=== PATIENT | male | born 1980 | race Caucasian/White ===

== ENCOUNTER 2017-10-17 05:35 | Emergency (ER) | payer SELFPAY ==
[2017-10-17] MEDS ORDERED: KETOROLAC 30 MG/ML INJ ONE (06:02)
[2017-10-17] MEDS ORDERED: NA CHLORIDE 0.9% 1,000 ML ONE ×2 (06:02→07:27)
[2017-10-17] MEDS ORDERED: MORPHINE 4 MG/ML SYR ONE (06:02)
[2017-10-17] MEDS ORDERED: ONDANSETRON 4 MG/2 ML VIAL ONE (06:02)
[2017-10-17 06:20] LABS: Absolute Lymphocytes (CBC) 1.4 K/uL (0.7-4.9); Absolute Monocytes 0.7 K/uL (0.1-1.3); Basophils % 0.4 % (0-1.3); Hematocrit 47.3 % (39.6-49.0); MCH 31.2 pg (27.0-35.0); MCV 90.2 fL (80-100); MPV 9.8 fL (7.6-11.3); Monocytes % 8.1 % (3.3-12.3); RBC Red Blood Cell Count 5.25 M/uL (4.33-5.43)
[2017-10-17 06:29] LABS: Potassium 3.7 mEq/L (3.6-5.0)
[2017-10-17 06:35] LABS: Albumin 4.7 g/dL (3.2-5.5); Bilirubin Direct 0.2 mg/dL (0-0.2); Bilirubin Total 0.7 mg/dL (0.3-1.2)
--- NOTE | 2017-10-17 07:44 | EDPHYS ---
Physician Documentation [facility] Name: Yecenia Escobar Jr Age: 36 yrs Sex: Male : 1980 Arrival Date: 10/17/2017 Time: 05:36 Bed 7 Private MD: ALE Physician Ramón Mohr HPI: 10/17 06:02 This 36 yrs old Male presents to ER via Ambulatory with complaints of Flank deb Burn, Flank Pain. 06:02 The patient has not experienced similar symptoms in the past. deb Historical: - Allergies: 06:01 No Known Allergies; tl2 - Home Meds: 06:01 None [Active]; tl2 - PMHx: 06:01 None; tl2 - PSHx: 06:01 None; tl2 - Immunization history:: Adult Immunizations up to date. - Social history:: Smoking status: Patient/guardian denies using tobacco. - Ebola Screening: : No symptoms or risks identified at this time. ROS: 06:02 Constitutional: Negative for fever, chills, and weight loss, Eyes: Negative for injury, deb pain, redness, and discharge, ENT: Negative for injury, pain, and discharge, Neck: Negative for injury, pain, and swelling, Cardiovascular: Negative for chest pain, palpitations, and edema, Respiratory: Negative for shortness of breath, cough, wheezing, and pleuritic chest pain, Abdomen/GI: Negative for abdominal pain, nausea, vomiting, diarrhea, and constipation, : Negative for injury, bleeding, discharge, and swelling, MS/Extremity: Negative for injury and deformity, Skin: Negative for injury, rash, and discoloration, Neuro: Negative for headache, weakness, numbness, tingling, and seizure, Psych: Negative for depression, anxiety, suicide ideation, homicidal ideation, and hallucinations, Allergy/Immunology: Negative for hives, rash, and allergies, Endocrine: Negative for neck swelling, polydipsia, polyuria, polyphagia, and marked weight changes, Hematologic/Lymphatic: Negative for swollen nodes, abnormal bleeding, and unusual bruising. 06:02 Back: Positive for decreased range of motion, flank pain, of the left low back and left mid back. Exam: 06:02 Constitutional: This is a well developed, well nourished patient who is awake, alert, deb and in no acute distress. Head/Face: Normocephalic, atraumatic. Eyes: Pupils equal round and reactive to light, extra-ocular motions intact. Lids and lashes normal. Conjunctiva and sclera are non-icteric and not injected. Cornea within normal limits. Periorbital areas with no swelling, redness, or edema. ENT: Nares patent. No nasal discharge, no septal abnormalities noted. Tympanic membranes are normal and external auditory canals are clear. Oropharynx with no redness, swelling, or masses, exudates, or evidence of obstruction, uvula midline. Mucous membranes moist. Neck: Trachea midline, no thyromegaly or masses palpated, and no cervical lymphadenopathy. Supple, full range of motion without nuchal rigidity, or vertebral point tenderness. No Meningismus. Chest/axilla: Normal chest wall appearance and motion. Nontender with no deformity. No lesions are appreciated. Cardiovascular: Regular rate and rhythm with a normal S1 and S2. No gallops, murmurs, or rubs. Normal PMI, no JVD. No pulse deficits. Respiratory: Lungs have equal breath sounds bilaterally, clear to auscultation and percussion. No rales, rhonchi or wheezes noted. No increased work of breathing, no retractions or nasal flaring. Abdomen/GI: Soft, non-tender, with normal bowel sounds. No distension or tympany. No guarding or rebound. No evidence of tenderness throughout. Male : Normal genitalia with no discharge or lesions. Skin: Warm, dry with normal turgor. Normal color with no rashes, no lesions, and no evidence of cellulitis. MS/ Extremity: Pulses equal, no cyanosis. Neurovascular intact. Full, normal range of motion. Neuro: Awake and alert, GCS 15, oriented to person, place, time, and situation. Cranial nerves II-XII grossly intact. Motor strength 5/5 in all extremities. Sensory grossly intact. Cerebellar exam normal. Normal gait. Psych: Awake, alert, with orientation to person, place and time. Behavior, mood, and affect are within normal limits. 06:02 Back: pain, that is moderate, ROM is normal, normal spinal alignment noted, CVA tenderness, that is moderate, is noted on the left. Vital Signs: 06:01 BP 132 / 95; Pulse 72; Resp 22 S; Temp 97(TE); Pulse Ox 100% on R/A; Weight 92.99 kg tl2 (R); Height 6 ft. 0 in. (182.88 cm) (R); Pain 10/10; 06:30 BP 128 / 88; Pulse 56; Resp 18; Pulse Ox 100% on R/A; tl2 08:15 BP 124 / 80; Pulse 60; Resp 17; Temp 97.0; Pulse Ox 99% on R/A; Pain 3/10; sg 06:01 Body Mass Index 27.80 (92.99 kg, 182.88 cm) tl2 MDM: 05:49 Patient medically screened. [facility] 06:04 Data reviewed: vital signs, nurses notes, lab test result(s), EKG, radiologic studies, [facility] CT scan, plain films. 10/17 06:02 Order name: Amylase, Serum [facility] 10/17 06:02 Order name: Basic Metabolic Panel [facility] 10/17 06:02 Order name: CBC with Diff; Complete Time: 07:10 [facility] 10/17 06:02 Order name: Creatinine for Radiology; Complete Time: 07:10 [facility] 10/17 06:02 Order name: Hepatic Function; Complete Time: 07:10 [facility] 10/17 06:02 Order name: Lipase; Complete Time: 07:10 [facility] 10/17 06:02 Order name: Urine Microscopic Only [facility] 10/17 06:02 Order name: CT Stone Protocol [facility] 10/17 06:02 Order name: Amylase Level; Complete Time: 07:10 EDMS 10/17 06:02 Order name: Basic Metabolic Panel; Complete Time: 07:10 [facility]MS 10/17 07:09 Order name: Urine Dipstick--Ancillary (enter results) 10/17 06:02 Order name: IV Saline Lock; Complete Time: 06:07 [facility] 10/17 06:02 Order name: Labs collected and sent; Complete Time: 06:07 [facility] 10/17 06:02 Order name: Urine Dipstick-Ancillary (obtain specimen); Complete Time: 07:07 [facility] 10/17 06:04 Order name: EKG; Complete Time: 06:05 [facility] 10/17 06:04 Order name: EKG - Nurse/Tech; Complete Time: 06:16 [facility] Administered Medications: 06:06 Drug: NS 0.9% 1000 ml Route: IV; Rate: 1 bolus; Site: right antecubital; tl2 07:06 Follow up: IV Status: Completed infusion; IV Intake: 1000ml tl2 06:06 Drug: TORadol 30 mg Route: IVP; Site: right antecubital; tl2 07:06 Follow up: Response: No adverse reaction; Pain is decreased tl2 06:07 Drug: morphine 4 mg Route: IVP; Site: right antecubital; tl2 07:06 Follow up: Response: No adverse reaction; Nausea is decreased tl2 07:06 Follow up: Response: No adverse reaction; Pain is decreased tl2 06:07 Drug: Zofran 4 mg Route: IVP; Site: right antecubital; tl2 07:06 Follow up: Response: No adverse reaction; Nausea is decreased tl2 07:28 Drug: NS 0.9% 1000 ml Route: IV; Rate: 1 bolus; Site: right antecubital; sg 07:46 CANCELLED (Duplicate Order): Rocephin - (cefTRIAXone) 1 grams IVPB once over 30 mins; ss (mix in 50 mL NS) 07:56 Drug: Flomax 0.4 mg Route: PO; ss 08:30 Follow up: Response: No adverse reaction sg 07:56 Drug: Rocephin 1 grams Route: IV; Rate: calculated rate; Site: right antecubital; ss 08:30 Follow up: Response: No adverse reaction; IV Status: Completed infusion; IV medication sg administered IVP as per pharmacy protocol Disposition: 10/17/17 07:43 Discharged to Home. Impression: Other acute pancreatitis - mild, Hydronephrosis with renal and ureteral calculous obstruction. - Condition is Stable. - Discharge Instructions: Abdominal Pain, Adult, Kidney Stones, Acute Pancreatitis, [id number], Kidney Stones, Awbo-hl-Kiqz, Abdominal Pain, Adult, Hkxq-od-Sbtl, Dietary Guidelines to Help Prevent Kidney Stones. - Prescriptions for Tylenol- Codeine #3 300-30 mg Oral Tablet - take 2 tablet by ORAL route every 6 hours As needed; 30 tablet. Zofran 4 mg Oral Tablet - take 1 tablet by ORAL route every 12 hours As needed; 20 tablet. Cipro 500 mg Oral Tablet - take 1 tablet by ORAL route every 12 hours for 7 days; 14 tablet. Flomax 0.4 mg Oral Capsule, Sust. Release 24 hr - take 1 capsule by ORAL route once daily 1/2 hour following the same meal each day; 30 capsule. - Medication Reconciliation Form, Thank You Letter, Antibiotic Education, Prescription Opioid Use form. - Follow up: Private Physician; When: 2 - 3 days; Reason: Recheck today's complaints, Continuance of care, Re-evaluation by your physician. Follow up: Jerilyn Cardozo; When: 2 - 3 days; Reason: Recheck today's complaints, Re-evaluation by your physician. Follow up: Adwoa Fuentes MD; When: 2 - 3 days; Reason: Recheck today's complaints, Continuance of care, Re-evaluation by your physician. - Problem is new. - Symptoms have improved. Signatures: Dispatcher [employer] EDMS Edwin Rowland RN RN Ramón Carranza MD MD cha Smirch, Shelby, RN RN Amanda Gonzalez RN RN tl2 Corrections: (The following items were deleted from the chart) 07:46 07:42 Rocephin - (cefTRIAXone) 1 grams IVPB once over 30 mins; (mix in 50 mL NS) ordered. [facility] 08:39 07:43 10/17/2017 07:43 Discharged to Home. Impression: Other acute pancreatitis - mild; sg Hydronephrosis with renal and ureteral calculous obstruction. Condition is Stable. Discharge Instructions: Abdominal Pain, Adult, Kidney Stones, Acute Pancreatitis, Acute Pancreatitis, Ddyh-bd-Edlm, Kidney Stones, Aqdd-yb-Oges, Abdominal Pain, Adult, Sixp-om-Owbh. Prescriptions for Pepcid 20 mg Oral Tablet - take 1 tablet by ORAL route every 12 hours for 10 days; 20 tablet, Tylenol-Codeine #3 300-30 mg Oral Tablet - take 2 tablet by ORAL route every 6 hours As needed; 30 tablet, Zofran 4 mg Oral Tablet - take 1 tablet by ORAL route every 12 hours As needed; 20 tablet. and Forms are Medication Reconciliation Form, Thank You Letter, Antibiotic Education, Prescription Opioid Use. Follow up: Private Physician; When: 2 - 3 days; Reason: Recheck today's complaints, Continuance of care, Re-evaluation by your physician. Follow up: Jerilyn Cardozo; When: 2 - 3 days; Reason: Recheck today's complaints, Re-evaluation by your physician. Follow up: Adwoa Fuentes; When: 2 - 3 days; Reason: Recheck today's complaints, Continuance of care, Re-evaluation by your physician. Problem is new. Symptoms have improved. deb
--- NOTE | 2017-10-17 07:44 | ER ---
Nurse's Notes [facility] Name: Yecenia Escobar Jr Age: 36 yrs Sex: Male : 1980 Arrival Date: 10/17/2017 Time: 05:36 Bed 7 Private MD: Diagnosis: Other acute pancreatitis-mild;Hydronephrosis with renal and ureteral calculous obstruction Presentation: 10/17 06:00 Presenting complaint: Patient states: he is having left flank pain since 0400 this tl2 morning. Transition of care: patient was not received from another setting of care. Onset of symptoms was October 17, 2017. Risk Assessment: Do you want to hurt yourself or someone else? Patient reports no desire to harm self or others. Initial Sepsis Screen: Does the patient meet any 2 criteria? No. Patient's initial sepsis screen is negative. Does the patient have a suspected source of infection? No. Patient's initial sepsis screen is negative. Care prior to arrival: None. 06:00 Method Of Arrival: Ambulatory tl2 06:00 Acuity: JOSE C 3 tl2 Historical: - Allergies: 06:01 No Known Allergies; tl2 - Home Meds: 06:01 None [Active]; tl2 - PMHx: 06:01 None; tl2 - PSHx: 06:01 None; tl2 - Immunization history:: Adult Immunizations up to date. - Social history:: Smoking status: Patient/guardian denies using tobacco. - Ebola Screening: : No symptoms or risks identified at this time. Screenin:04 Abuse screen: Denies threats or abuse. Nutritional screening: No deficits noted. tl2 Tuberculosis screening: No symptoms or risk factors identified. Fall Risk None identified. Assessment: 05:55 General: Appears in no apparent distress. uncomfortable, Behavior is cooperative, tl2 appropriate for age, anxious. Pain: Complains of pain in left flank Pain radiates to left lower quadrant. Neuro: Level of Consciousness is awake, alert, obeys commands, Oriented to person, place, time, situation. Cardiovascular: Denies chest pain. Respiratory: Airway is patent Respiratory effort is even, unlabored, Respiratory pattern is regular, symmetrical. GI: Reports nausea, vomiting. : Reports urgency. Derm: Skin is pink, warm \\T\\ dry. 06:52 Reassessment: Patient appears in no apparent distress at this time. Patient and/or tl2 family updated on plan of care and expected duration. Pain level reassessed. Patient is alert, oriented x 3, equal unlabored respirations, skin warm/dry/pink. Patient denies pain at this time. Patient states feeling better. 07:00 Reassessment: Patient reports feeling better, ambulated to restroom with steady gait. ss Symptoms resolved, denies pain. Awaiting CT scan to be obtained. Called ekg tech who states, "pt is next" for scan. Vital Signs: 06:01 BP 132 / 95; Pulse 72; Resp 22 S; Temp 97(TE); Pulse Ox 100% on R/A; Weight 92.99 kg tl2 (R); Height 6 ft. 0 in. (182.88 cm) (R); Pain 10/10; 06:30 BP 128 / 88; Pulse 56; Resp 18; Pulse Ox 100% on R/A; tl2 08:15 BP 124 / 80; Pulse 60; Resp 17; Temp 97.0; Pulse Ox 99% on R/A; Pain 3/10; sg 06:01 Body Mass Index 27.80 (92.99 kg, 182.88 cm) tl2 ED Course: 05:36 Patient arrived in ED. am2 05:49 Ramón Mohr MD is Attending Physician. deb 05:55 Inserted saline lock: 20 gauge in right antecubital area, using aseptic technique. tl2 Blood collected. 06:00 Amanda Watts, YAMILET is Primary Nurse. tl2 06:01 Triage completed. tl2 06:01 Arm band placed on Patient placed in an exam room, on a stretcher. tl2 06:52 Patient has correct armband on for positive identification. Bed in low position. Call tl2 light in reach. Side rails up X 1. Adult w/ patient. 07:[address] vm2 07:07 CT Stone Protocol In Process Unspecified. EDMS 07:17 CT completed. Patient tolerated procedure well. Patient moved back from CT. jj2 07:32 Primary Nurse role handed off by Amanda Watts, RN sg 07:32 Edwin Rowland, YAMILET is Primary Nurse. sg 07:43 Jerilyn Cardozo MD is Referral Physician. deb 07:43 Adwoa Fuentes MD is Referral Physician. deb 08:10 No provider procedures requiring assistance completed. Patient did not have IV access sg during this emergency room visit. intact, No redness/swelling at site. Administered Medications: 06:06 Drug: NS 0.9% 1000 ml Route: IV; Rate: 1 bolus; Site: right antecubital; tl2 07:06 Follow up: IV Status: Completed infusion; IV Intake: 1000ml tl2 06:06 Drug: TORadol 30 mg Route: IVP; Site: right antecubital; tl2 07:06 Follow up: Response: No adverse reaction; Pain is decreased tl2 06:07 Drug: morphine 4 mg Route: IVP; Site: right antecubital; tl2 07:06 Follow up: Response: No adverse reaction; Nausea is decreased tl2 07:06 Follow up: Response: No adverse reaction; Pain is decreased tl2 06:07 Drug: Zofran 4 mg Route: IVP; Site: right antecubital; tl2 07:06 Follow up: Response: No adverse reaction; Nausea is decreased tl2 07:28 Drug: NS 0.9% 1000 ml Route: IV; Rate: 1 bolus; Site: right antecubital; sg 07:46 CANCELLED (Duplicate Order): Rocephin - (cefTRIAXone) 1 grams IVPB once over 30 mins; ss (mix in 50 mL NS) 07:56 Drug: Flomax 0.4 mg Route: PO; ss 08:30 Follow up: Response: No adverse reaction sg 07:56 Drug: Rocephin 1 grams Route: IV; Rate: calculated rate; Site: right antecubital; ss 08:30 Follow up: Response: No adverse reaction; IV Status: Completed infusion; IV medication sg administered IVP as per pharmacy protocol Intake: 07:06 IV: 1000ml; Total: 1000ml. tl2 Outcome: 07:43 Discharge ordered by . deb 08:04 Condition: improved ss 08:04 Discharge instructions given to patient, family, Instructed on discharge instructions, follow up and referral plans. medication usage, Demonstrated understanding of instructions, follow-up care, medications, Prescriptions given X 4. 08:30 Discharged to home ambulatory, with family. sg 08:39 Patient left the ED. sg Signatures: Dispatcher [employer] EDMS Edwin Rowland RN RN sg Anderson, Corey, MD MD cha Jaramillo, Justin jj2 Smirch, Shelby, RN RN ss Amanda Watts RN RN tl2 Manjula Wagner am Sofia Smith [facility]
[2017-10-17] MEDS ORDERED: CEFTRIAXONE/SWI 1gm 1 GM/10 ML SYR ONE (07:50)
[2017-10-17] MEDS ORDERED: TAMSULOSIN 0.4 MG SR CAP ONE (07:50)
[2017-10-17 08:03] LABS: Urine Bacteria <20 /HPF (NONE SEEN); Urine Culture Reflex Order NOT NEEDED; Urine RBC 20-50 /HPF (NONE SEEN)
[2017-10-17 08:05] LABS: Urine Blood 2+ (NEG); Urine Glucose NEGATIVE (NEG); Urine Protein 1+ (NEG); Urine Specific Gravity 1.015 (1.005-1.030); Urine pH 7.5 (5.0-7.0)
--- NOTE | 2017-10-17 08:19 | RAD REPORT ---
EXAM DESCRIPTION: CT - Stone Protocol - 10/17/2017 7:07 am CLINICAL HISTORY: Abdominal pain. Left flank pain COMPARISON: None. TECHNIQUE: Computed axial tomography of the abdomen pelvis was obtained without oral or IV contrast. Lack of IV and oral contrast limits evaluation of solid organs, bowel, and vessels. Coronal reformat marcio images were obtained and reviewed. A preliminary report was generated by [employer] and reviewed prior to this dictation All CT scans are performed using dose optimization technique as appropriate and may include automated exposure control or mA/KV adjustment according to patient size. FINDINGS: A renal calculus is not seen. Mild left hydronephrosis is present. A 4 x 2 millimeter calc ulus is present within the distal left ureter near the UPJ junction. Due to its small size an accurat e density could not be obtained. A bladder calculus is not present. The liver, spleen, pancreas and adrenals appear grossly normal There is no evidence of diverticulitis. The appendix appears normal. Small inguinal hernias contain fat IMPRESSION: 4 x 2 millimeter calculus distal left ureter resulting in mild left hydronephrosis
--- NOTE | 2017-10-17 08:28 | EKG ---
Test Date: 2017-10-17 Test Time: 06:20:56 Truck Dispatcher: MISTI MEASUREMENT RESULTS: Intervals: Rate: 53 UT: 180 QRSD: 110 QT: 434 QTc: 407 [place]: P: 58 UT: 180 QRS: 77 T: 64 INTERPRETIVE STATEMENTS: Sinus bradycardia Incomplete right bundle branch block Borderline ECG No previous ECG available for comparison Electronically Signed On 10-17-17 08:27:24 CDT by Eric Gonzalez
== END 2017-10-17 08:39 | disposition home or self-care (01) ==
LOC: ER 05:35
DX: K85.80 Other acute pancreatitis without necrosis or infection (principal); N13.2 Hydronephrosis with renal and ureteral calculous obstruction
CPT/HCPCS: 36415; 74176; 76377; 80048; 80076; 81003; 81015; 82150; 83690; 85025; 93005; 96361; 96365; 96375; 99284; J0696; J2405; J7030